=== PATIENT | male | born 1950 | race Caucasian/White ===

== ENCOUNTER 2017-06-29 10:13 | Observation (INO) | payer MEDICARE, BC ==
[~2017-06-29] VITALS: Ht 182.9 cm; Wt 80.0 kg
[2017-06-29] VITALS (8 sets, daily range): BP systolic 100–176; BP diastolic 57–76; PULSE 45–60; RESP 16–18; TEMP 98.2–98.6; O2SAT 94–100
[~2017-06-29 10:13] MED LIST: MOBI15TA PO
--- NOTE | 2017-06-29 10:52 | RADRPT ---
EXAM DATE/TIME: 06/29/2017 10:46 [place] COMPARISON: No previous studies available for comparison. INDICATIONS : Chest pain. MEDICAL HISTORY : None. SURGICAL HISTORY : None. ENCOUNTER: Initial ACUITY: 1 day PAIN SCORE: 5/10 LOCATION: Bilateral chest FINDINGS: PA and lateral views of the chest demonstrate the lungs to be symmetrically aerated without evidence of mass, infiltrate or effusion. The cardiomediastinal contours are unremarkable. Osseous structure s are intact. CONCLUSION: No acute disease. Ravinder Parikh MD on June 29, 2017 at 10:50 Board Certified Radiologist. This report was verified electronically.
[2017-06-29 11:06] LABS: AUTOMATED NEUTROPHIL # 3.9 TH/MM3 (1.8-7.7); BASOPHIL # 0.1 TH/MM3 (0-0.2); BASOPHIL % 1.1 % (0.0-2.0); EOSINOPHIL # 0.1 TH/MM3 (0-0.4); EOSINOPHIL % 1.6 % (0.0-4.0); HEMOGLOBIN 15.5 GM/DL (13.0-17.0); LYMPH % 23.6 % (9.0-44.0); LYMPHOCYTE # 1.3 TH/MM3 (1.0-4.8); MEAN CELL VOLUME 93.8 FL (80.0-100.0); MEAN CORPUSCULAR HEMOGLOBIN 32.3 PG (27.0-34.0); MEAN CORPUSCULAR HGB CONC 34.5 % (32.0-36.0); MEAN PLATELET VOLUME 8.1 FL (7.0-11.0); MONO % 4.9 % (0.0-8.0); MONOCYTE # 0.3 TH/MM3 (0-0.9); NEUT % 68.8 % (16.0-70.0); PLATELET COUNT 219 TH/MM3 (150-450); RED CELL DISTRIBUTION WIDTH 13.7 % (11.6-17.2); WHITE BLOOD COUNT 5.6 TH/MM3 (4.0-11.0)
[2017-06-29] MEDS ORDERED: ASPIRIN 81 MG CHEW TAB PO ONE (11:15)
[2017-06-29] MEDS ORDERED: NITROGLYCERIN 0.4 MG SL 25 TABS/BTL SL SCH (11:15)
--- NOTE | 2017-06-29 11:15 | PD ---
HPI Chief Complaint: Chest Pain Time Seen by Provider: 11:04 Travel History International Travel<30 days: No Contact w/Intl Traveler<30days: No Traveled to known affect area: No History of Present Illness HPI This is 66-year-old male who reports a past medical history only significant for BPH. He presents for evaluation of chest pain. 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 He describes it as a sharp pain in the substernal/left chest region which is intermittent. There are no aggravating factors are her symptoms improve when he is resting and relaxing. He denies any shortness of breath, cough or congestion, nausea or vomiting, abdominal pain, diaphoresis, lower extremity edema. He has never had chest pain like this before. He denies any history of coronary artery disease, hypertension, diabetes, hyperlipidemia or tobacco use. He reports that he has an uncle who had an AZ in the past but otherwise denies any significant past family history. He reports that he took a baby aspirin after symptoms started. He reports that he had a stress test 10 years ago which he was told was normal. His primary care physician is Dr. Cotter. No other complaints at this time. [facility] Past Medical History Genitourinary: Yes (ENLARGED PROSTATE) Past Surgical History Abdominal Surgery: Yes (INGUINAL HERNIA REPAIR LEFT SIDE) Social History Alcohol Use: No Tobacco Use: No Substance Use: No Allergies-Medications (Allergen,Severity, Reaction): Coded Allergies: No Known Allergies (Unverified , 05/10/14) Reported Meds & Prescriptions Reported Meds & Active Scripts Active Reported Aspirin 81 Mg Chew 81 Mg CHEW DAILY Finasteride 5 Mg Tab 5 Mg DAILY Do not crush. Flomax (Tamsulosin HCl) 0.4 Mg Cap 0.4 Mg PO HS Review of Systems Except as stated in HPI: all other systems reviewed are Neg Physical Exam Narrative GENERAL: Pleasant well-developed well-nourished male in no acute distress SKIN: Warm and dry. HEAD: Atraumatic. Normocephalic. EYES: Pupils equal and round. No scleral icterus. No injection or drainage. ENT: No nasal bleeding or discharge. Mucous membranes pink and moist. NECK: Trachea midline. No JVD. CARDIOVASCULAR: Regular rate and rhythm. No murmur appreciated. RESPIRATORY: No accessory muscle use. Clear to auscultation. Breath sounds equal bilaterally. GASTROINTESTINAL: Abdomen soft, non-tender, nondistended. Hepatic and splenic margins not palpable. MUSCULOSKELETAL: No obvious deformities. No clubbing. No cyanosis. No edema. NEUROLOGICAL: Awake and alert. No obvious cranial nerve deficits. Motor grossly within normal limits. Normal speech. PSYCHIATRIC: Appropriate mood and affect; insight and judgment normal. Data Data Last Documented VS Vital Signs Date Time Temp Pulse Resp B/P (MAP) Pulse Ox O2 Delivery O2 Flow Rate FiO2 06/29/17 11:21 60 18 140/75 (96) 100 Room Air 06/29/17 10:17 98.5 Orders Orders Electrocardiogram (06/29/17 10:20) Complete Blood Count With Diff (06/29/17 10:20) Basic Metabolic Panel (Bmp) (06/29/17 10:20) Ckmb (Isoenzyme) Profile (06/29/17 10:20) Troponin I (06/29/17 10:20) Iv Access Insert/Monitor (06/29/17 10:20) Ecg Monitoring (06/29/17 10:20) Oxygen Administration (06/29/17 10:20) Oximetry (06/29/17 10:20) Chest, Pa & Lat (06/29/17 10:20) Aspirin Chew (Aspirin Chew) (06/29/17 11:15) Nitroglycerin Sl (Nitrostat Sl) (06/29/17 11:15) Act Partial Throm Time (Ptt) (06/29/17 11:15) Prothrombin Time / Inr (Pt) (06/29/17 11:15) CKMB (06/29/17 10:40) CKMB% (06/29/17 10:40) Admit Order (Ed Use Only) (06/29/17 11:39) Morphine Inj (Morphine Inj) (06/29/17 11:45) Labs Laboratory Tests Test 06/29/17 10:40 White Blood Count 5.6 TH/MM3 Red Blood Count 4.80 MIL/MM3 Hemoglobin 15.5 GM/DL Hematocrit 45.0 % Mean Corpuscular Volume 93.8 FL Mean Corpuscular Hemoglobin 32.3 PG Mean Corpuscular Hemoglobin Concent 34.5 % Red Cell Distribution Width 13.7 % Platelet Count 219 TH/MM3 Mean Platelet Volume 8.1 FL Neutrophils (%) (Auto) 68.8 % Lymphocytes (%) (Auto) 23.6 % Monocytes (%) (Auto) 4.9 % Eosinophils (%) (Auto) 1.6 % Basophils (%) (Auto) 1.1 % Neutrophils # (Auto) 3.9 TH/MM3 Lymphocytes # (Auto) 1.3 TH/MM3 Monocytes # (Auto) 0.3 TH/MM3 Eosinophils # (Auto) 0.1 TH/MM3 Basophils # (Auto) 0.1 TH/MM3 CBC Comment DIFF FINAL Differential Comment Blood Urea Nitrogen 20 MG/DL Creatinine 1.10 MG/DL Random Glucose 138 MG/DL Calcium Level 8.7 MG/DL Sodium Level 142 MEQ/L Potassium Level 4.4 MEQ/L Chloride Level 106 MEQ/L Carbon Dioxide Level 31.8 MEQ/L Anion Gap 4 MEQ/L Estimat Glomerular Filtration Rate 67 ML/MIN Total Creatine Kinase 298 U/L Troponin I LESS THAN 0.02 NG/ML MDM Medical Decision Making Medical Screen Exam Complete: Yes Emergency Medical Condition: Yes Medical Record Reviewed: Yes Differential Diagnosis Angina, acute coronary syndrome, pericarditis, myocarditis, pneumothorax, hemothorax, pulmonary embolism, GERD, aortic dissection Narrative Course The patient was placed on ECG monitoring pulse oximetry. 12-lead EKG was obtained revealing sinus bradycardia with a rate of 51, occasional SVTs. Lab work, chest x-rays been ordered. Addition 243 mg of aspirin, sublingual nitroglycerin has been ordered. CBC is unremarkable. Chest x-ray reveals no acute disease. BMP reveals a BUN of 20, glucose 138 otherwise unremarkable. Initial set of cardiac enzymes are negative. At this point time the plan would be to admit the patient to the chest pain center for serial cardiac enzymes and rule out purposes. She is agreeable. Diagnosis Primary Impression: Chest pain Admitting Information Admitting Physician Requests: Zacarias Scott Jun 29, 2017 11:15
[2017-06-29 11:25] LABS: BICARBONATE 31.8 MEQ/L (21.0-32.0); BLOOD UREA NITROGEN 20 MG/DL (7-18); CALCIUM 8.7 MG/DL (8.5-10.1); CHLORIDE 106 MEQ/L (98-107); GLOMERULAR FILTRATION RATE 67 ML/MIN (>89); GLUCOSE,RANDOM 138 MG/DL (74-106); SODIUM (NA) 142 MEQ/L (136-145)
[2017-06-29 11:28] LABS: TROPONIN I LESS THAN 0.02 NG/ML (0.02-0.05)
[2017-06-29] MEDS ORDERED: TAMS5CAP PO (11:30)
[2017-06-29] MEDS ORDERED: FINA5TAB2 (11:30)
[2017-06-29] MEDS ORDERED: ASPI-516 CHEW (11:31)
[2017-06-29] MEDS ORDERED: MORPHINE SULFATE 4 MG/ML INJ IV PUSH ONE (11:45)
--- NOTE | 2017-06-29 11:49 | PD ---
Physical Exam Date Seen by Provider: Jun 29, 2017 Narrative Patient presents with a chief complaint of chest pain which started while he was at work this morning. Data Data Last Documented VS Vital Signs Date Time Temp Pulse Resp B/P (MAP) Pulse Ox O2 Delivery O2 Flow Rate FiO2 06/29/17 11:21 60 18 140/75 (96) 100 Room Air 06/29/17 10:17 98.5 Orders Orders Electrocardiogram (06/29/17 10:20) Complete Blood Count With Diff (06/29/17 10:20) Basic Metabolic Panel (Bmp) (06/29/17 10:20) Ckmb (Isoenzyme) Profile (06/29/17 10:20) Troponin I (06/29/17 10:20) Iv Access Insert/Monitor (06/29/17 10:20) Ecg Monitoring (06/29/17 10:20) Oxygen Administration (06/29/17 10:20) Oximetry (06/29/17 10:20) Chest, Pa & Lat (06/29/17 10:20) Aspirin Chew (Aspirin Chew) (06/29/17 11:15) Nitroglycerin Sl (Nitrostat Sl) (06/29/17 11:15) Act Partial Throm Time (Ptt) (06/29/17 11:15) Prothrombin Time / Inr (Pt) (06/29/17 11:15) CKMB (06/29/17 10:40) CKMB% (06/29/17 10:40) Admit Order (Ed Use Only) (06/29/17 11:39) Morphine Inj (Morphine Inj) (06/29/17 11:45) Labs Laboratory Tests Test 06/29/17 10:40 06/29/17 11:40 White Blood Count 5.6 TH/MM3 Red Blood Count 4.80 MIL/MM3 Hemoglobin 15.5 GM/DL Hematocrit 45.0 % Mean Corpuscular Volume 93.8 FL Mean Corpuscular Hemoglobin 32.3 PG Mean Corpuscular Hemoglobin Concent 34.5 % Red Cell Distribution Width 13.7 % Platelet Count 219 TH/MM3 Mean Platelet Volume 8.1 FL Neutrophils (%) (Auto) 68.8 % Lymphocytes (%) (Auto) 23.6 % Monocytes (%) (Auto) 4.9 % Eosinophils (%) (Auto) 1.6 % Basophils (%) (Auto) 1.1 % Neutrophils # (Auto) 3.9 TH/MM3 Lymphocytes # (Auto) 1.3 TH/MM3 Monocytes # (Auto) 0.3 TH/MM3 Eosinophils # (Auto) 0.1 TH/MM3 Basophils # (Auto) 0.1 TH/MM3 CBC Comment DIFF FINAL Differential Comment Blood Urea Nitrogen 20 MG/DL Creatinine 1.10 MG/DL Random Glucose 138 MG/DL Calcium Level 8.7 MG/DL Sodium Level 142 MEQ/L Potassium Level 4.4 MEQ/L Chloride Level 106 MEQ/L Carbon Dioxide Level 31.8 MEQ/L Anion Gap 4 MEQ/L Estimat Glomerular Filtration Rate 67 ML/MIN Total Creatine Kinase 298 U/L Creatine Kinase MB 4.9 NG/ML Troponin I LESS THAN 0.02 NG/ML MDM Supervised Visit with ROSA M: Yes Interpretation(s) EKG shows a normal sinus rhythm with no acute ischemic changes Differential Diagnosis Differential diagnosis of chest pain includes but is not limited to musculoskeletal pain, pulmonary embolism, acute coronary syndrome, pneumonia, pleurisy Narrative Course I, Dr. Travis, have reviewed the advance practice practitioner's documentation and am in agreement, met with the patient face to face, made the diagnosis, and the medical decision making was done by me. *My assessment and Findings: CBC & BMP Diagram 06/29/17 10:40 Calcium Level 8.7 trop < 0.02 This patient will be admitted to the chest pain center for further evaluation. Diagnosis Primary Impression: Chest pain Araceli Travis MD Jun 29, 2017 11:49
[2017-06-29 11:58] LABS: INTERNATIONAL NORMALIZED RATIO 1.1 RATIO; PROTHROMBIN TIME - PATIENT 11.3 SEC (9.8-11.6)
[2017-06-29] MEDS ORDERED: ACETAMINOPHEN 500 MG CPLT PO PRN (13:15)
[2017-06-29] MEDS ORDERED: ALPRAZolam 0.25 MG TAB PO PRN (13:15)
[2017-06-29] MEDS ORDERED: ONDANSETRON HCL 4 MG/2 ML VIAL IV PUSH PRN (13:15)
[2017-06-29] MEDS ORDERED: ACETAMINOPHEN/HYDROcodone 325 MG/7.5 MG TAB PO PRN (13:15)
--- NOTE | 2017-06-29 13:21 | HHI.HP ---
[facility] Primary Care Physician Lopez Cotter M.D. 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 Describes as a sharp discomfort. It lasted about 3 hours. Was in the center of his chest rating a little bit to the left. He states that he was given sublingual nitroglycerin in the emergency department and seemed to resolve the symptoms within 10-15 minutes. Denies being short of breath, nauseous, diaphoretic. Denies history of CAD. States he had a stress test about 10 years ago that was okay. Has history of BPH. Denies hypertension , hyperlipidemia, diabetes, CAD, tobacco abuse. Denies family history of CAD. Denies recent illness. Denies recent travel. Review of Systems General: Patient denies fevers, chills, and recent travel. HEENT: Patient denies headache, sore throat, difficulty swallowing. Cardiovascular: Has the chest discomfort as mentioned above. Denies sensation of heart beating rapidly or irregularly. No syncope. Denies diaphoresis. Respiratory: Denies shortness of breath or inspirational chest discomfort. Denies coughing wheezing or hemoptysis. GI: Patient denies nausea, vomiting, diarrhea, abdominal pain, bloody stools. Musculoskeletal: Patient denies joint pain or edema. Denies calf pain or edema. Neurovascular: Patient denies numbness, tingling, weakness in extremities. Denies headache. Endocrine: Denies polyuria and polydipsia. Hematologic: Denies easy bruising. Skin: Denies rash or itching. Past Family Social History Allergies: Coded Allergies: No Known Allergies (Unverified , 05/10/14) Past Medical History BPH. Denies hypertension, hyperlipidemia, diabetes, CAD, and tobacco abuse. Past Surgical History Left tibial plateau fracture. Reported Medications Reported Meds & Active Scripts Active Reported Aspirin 81 Mg Chew 81 Mg CHEW DAILY Finasteride 5 Mg Tab 5 Mg DAILY Do not crush. Flomax (Tamsulosin HCl) 0.4 Mg Cap 0.4 Mg PO HS Active Ordered Medications Current Medications Medications (Trade) Dose Ordered Sig/Alexi Route Start Time Stop Time Status Last Admin (Tylenol) 500 mg Q4H PRN PO 06/29/17 13:15 UNV ([place] 7.5-325 Mg) 1 tab Q4H PRN PO 06/29/17 13:15 UNV (Zofran Inj) 4 mg Q6H PRN IV PUSH 06/29/17 13:15 UNV (Protonix) 40 mg DAILY PO 06/29/17 13:15 UNV (Aspirin) 325 mg DAILY PO 06/30/17 09:00 UNV (Xanax) 0.25 mg Q8H PRN PO 06/29/17 13:15 UNV Family History Denies family history of CAD. Social History Lifetime non-smoker. Rarely has alcohol. Denies illicit drug use. Physical Exam Vital Signs Vital Signs Date Time Temp Pulse Resp B/P (MAP) Pulse Ox O2 Delivery O2 Flow Rate FiO2 06/29/17 12:06 52 18 135/67 (89) 97 Room Air 06/29/17 11:21 60 18 140/75 (96) 100 Room Air 06/29/17 11:21 57 18 99 Room Air 06/29/17 11:20 18 99 Room Air 06/29/17 11:20 99 Room Air 06/29/17 10:17 98.5 50 16 176/76 (109) 100 Physical Exam GENERAL: This is a well-nourished, well-developed patient, in no apparent distress. Patient speaks in clear complete sentences. Patient is pleasant. HEENT: Head is atraumatic and normocephalic. Neck is supple without lymphadenopathy and trachea is midline. No JVD or carotid bruits. CARDIOVASCULAR: Regular rate and rhythm without murmurs, gallops, or rubs. RESPIRATORY: Clear to auscultation. Breath sounds equal bilaterally. No wheezes , rales, or rhonchi. Chest wall is nontender. No use of accessory muscles. GASTROINTESTINAL: Abdomen is nontender, nondistended. Abdomen soft. No obvious pulsatile mass or bruit. No CVA tenderness. Strong femoral pulses bilaterally. Normal bowel sounds in all quadrants. MUSCULOSKELETAL: Patient is moving upper and lower extremities freely. No calf tenderness or edema, no Homans sign. Strong pulses in upper and lower extremities. NEUROLOGICAL: Patient is alert and oriented. Cranial nerves 2-12 are grossly intact. No focal deficits and speech is clear. SKIN: No rash and turgor is normal. Laboratory Laboratory Tests Test 06/29/17 10:40 06/29/17 11:40 White Blood Count 5.6 Red Blood Count 4.80 Hemoglobin 15.5 Hematocrit 45.0 Mean Corpuscular Volume 93.8 Mean Corpuscular Hemoglobin 32.3 Mean Corpuscular Hemoglobin Concent 34.5 Red Cell Distribution Width 13.7 Platelet Count 219 Mean Platelet Volume 8.1 Neutrophils (%) (Auto) 68.8 Lymphocytes (%) (Auto) 23.6 Monocytes (%) (Auto) 4.9 Eosinophils (%) (Auto) 1.6 Basophils (%) (Auto) 1.1 Neutrophils # (Auto) 3.9 Lymphocytes # (Auto) 1.3 Monocytes # (Auto) 0.3 Eosinophils # (Auto) 0.1 Basophils # (Auto) 0.1 CBC Comment DIFF FINAL Differential Comment Blood Urea Nitrogen 20 Creatinine 1.10 Random Glucose 138 Calcium Level 8.7 Sodium Level 142 Potassium Level 4.4 Chloride Level 106 Carbon Dioxide Level 31.8 Anion Gap 4 Estimat Glomerular Filtration Rate 67 Total Creatine Kinase 298 Creatine Kinase MB 4.9 Troponin I LESS THAN 0.02 Prothrombin Time 11.3 Prothromb Time International Ratio 1.1 Activated Partial Thromboplast Time 23.2 Result Diagram: 06/29/17 1040 06/29/17 1040 Imaging Last 48 hours Impressions Chest X-Ray 06/29/17 1020 Signed Impressions: Service Date/Time: Thursday, June 29, 2017 10:46 - CONCLUSION: No acute disease. Ravinder Parikh MD Course Initial EKG is sinus bradycardia without significant ST segment depressions or elevations. Caprini VTE Risk Assessment Caprini VTE Risk Assessment: Mod/High Risk (score >= 2) Caprini Risk Assessment Model Point Value = 1 Point Value = 2 Point Value = 3 Point Value = 5 Age 41-60 Minor surgery BMI > 25 kg/m2 Swollen legs Varicose veins or History of unexplained or recurrent spontaneous Oral contraceptives or hormone replacement Sepsis (< 1 month) Serious lung disease, including pneumonia (< 1 month) Abnormal pulmonary function Acute myocardial infarction Congestive heart failure (< 1 month) History of inflammatory bowel disease Medical patient at bed rest Age 61-74 Arthroscopic surgery Major open surgery (> 45 min) Laparoscopic surgery (> 45 min) Malignancy Confined to bed (> 72 hours) Immobilizing plaster cast Central venous access Age >= 75 History of VTE Family history of VTE Factor V Leiden Prothrombin [id number] Lupus anticoagulant Anticardiolipin antibodies Elevated serum homocysteine Heparin-induced thrombocytopenia Other congenital or acquired thrombophilia Stroke (< 1 month) Elective arthroplasty Hip, pelvis, or leg fracture Acute spinal cord injury (< 1 month) Prophylaxis Regimen Total Risk Factor Score Risk Level Prophylaxis Regimen 0-1 Low Early ambulation 2 Moderate Order ONE of the following: *Sequential Compression Device (SCD) *Heparin 5000 units SQ BID 3-4 Higher Order ONE of the following medications: *Heparin 5000 units SQ TID *Enoxaparin/Lovenox 40 mg SQ daily (WT < 150 kg, CrCl > 30 mL/min) *Enoxaparin/Lovenox 30 mg SQ daily (WT < 150 kg, CrCl > 10-29 mL/min) *Enoxaparin/Lovenox 30 mg SQ BID (WT < 150 kg, CrCl > 30 mL/min) AND/OR *Sequential Compression Device (SCD) 5 or more Highest Order ONE of the following medications: *Heparin 5000 units SQ TID (Preferred with Epidurals) *Enoxaparin/Lovenox 40 mg SQ daily (WT < 150 kg, CrCl > 30 mL/min) *Enoxaparin/Lovenox 30 mg SQ daily (WT < 150 kg, CrCl > 10-29 mL/min) *Enoxaparin/Lovenox 30 mg SQ BID (WT < 150 kg, CrCl > 30 mL/min) AND *Sequential Compression Device (SCD) Assessment and Plan Assessment and Plan * Chest pain: Patient will have serial cardiac enzymes and EKGs for ruling out purposes. He will be seen by Dr. Eliceo Nuñez of cardiology in the chest pain center and will undergo a Kevin protocol ETT. Patient will be discharged home if the stress test is nonischemic with instructions to follow-up with PCP. Return to ED for interval issues. * BPH: Resume medication. Patient is stable at this time. He is agreeable to this plan. Zay Benavides Jun 29, 2017 13:21
[2017-06-29] MEDS: PANTOPRAZOLE SOD 40 MG DELAYED RELEASE TAB PO SCH (14:19)
[2017-06-29 14:24] LABS: TROPONIN I LESS THAN 0.02 NG/ML (0.02-0.05)
[2017-06-29 17:10] LABS: TROPONIN I LESS THAN 0.02 NG/ML (0.02-0.05)
[2017-06-29] MEDS ORDERED: TAMSULOSIN HCL 0.4 MG CAP PO SCH (21:00)
--- NOTE | 2017-06-30 05:30 | EKG ---
Date Performed: 06/29/2017 Time Performed: 16:44:24 PTAGE: 66 years EKG: SINUS BRADYCARDIA WITH SHORT MS INTERVAL WITH OCCASIONAL VENTRICULAR PREMATURE COMPLEXES GOYO RDERLINE ECG PREVIOUS TRACING : 06/29/2017 13.24 No significant change from previous tracing noted. DOCTOR: Selvin Marcano Interpretating Date/Time 06/30/2017 05:28:36
--- NOTE | 2017-06-30 05:31 | EKG ---
Date Performed: 06/29/2017 Time Performed: 13:24:31 PTAGE: 66 years EKG: SINUS BRADYCARDIA WITH OCCASIONAL VENTRICULAR PREMATURE COMPLEXES ABNORMAL ECG PREVIOUS TRACING : 06/29/2017 10.24 Compared to previous tracing, PVCs are now present. DOCTOR: Selvin Marcano Interpretating Date/Time 06/30/2017 05:30:53
--- NOTE | 2017-06-30 05:32 | EKG ---
Date Performed: 06/29/2017 Time Performed: 10:24:26 PTAGE: 66 years EKG: SINUS BRADYCARDIA WITH OCCASIONAL SUPRAVENTRICULAR PREMATURE COMPLEXES BORDERLINE ECG INTER PRETATION BASED ON A DEFAULT AGE OF 40 YEARS PREVIOUS TRACING : 06/29/2017 10.23, image not available. DOCTOR: Selvin Marcano Interpretating Date/Time 06/30/2017 05:31:35
[2017-06-30 08:48] VITALS: BP 115/59; PULSE 82; RESP 18; TEMP 97.7; O2SAT 95
--- NOTE | 2017-06-30 08:49 | HHI.DCPOC ---
Discharge Care Plan Diagnosis: (1) Chest pain Goals to Promote Your Health * To prevent worsening of your condition and complications * To maintain your health at the optimal level Directions to Meet Your Goals Take your medications as prescribed Follow your dietary instruction Follow activity as directed Keep your appointments as scheduled Take your immunizations and boosters as scheduled If your symptoms worsen call your PCP, if no PCP go to Urgent Care Center or Emergency Room Smoking is Dangerous to Your Health. Avoid second hand smoke Call the 24-hour hour crisis hotline for domestic abuse at Zay Benavides Jun 30, 2017 08:49
[2017-06-30] MEDS ORDERED: FINASTERIDE 5 MG TAB PO SCH (09:00)
[2017-06-30] MEDS ORDERED: ASPIRIN 325 MG TAB PO SCH (09:00)
[2017-06-30] MEDS: PANTOPRAZOLE SOD 40 MG DELAYED RELEASE TAB PO SCH (09:11)
--- NOTE | 2017-06-30 18:45 | TR ---
Date Performed: 06/30/2017 Time Performed: 08:20:19 DOCTOR: Janeth Saleh DRUG LIST: CLINICAL HISTORY: REASON FOR TEST: REASON FOR ENDING: OBSERVATION: CONCLUSION: NETTIE PROTOCOL. NO CP. TEST STOPPED AFTER EXCEEDING GOAL HR SECONDARY TO SOB AND LEG FATIGUE.Maximum WA=483 % Max HR Achieved=92.0% Maximum WR=040/82 Total Exercise Time=8:00 COMMENTS: No ischemia
== END 2017-06-30 10:25 | disposition home or self-care (01) ==
LOC: NEPC 10:13 → NEDA 11:41 → NEPFCDU 14:04
PROVIDERS: ADMIT Internal Medicine Cardiovascular Disease; ATTEND Internal Medicine Cardiovascular Disease
DX: R07.89 Other chest pain (principal); R94.31 Abnormal electrocardiogram [ECG] [EKG]; N40.0 Benign prostatic hyperplasia without lower urinary tract symptoms; Z82.49 Family history of ischemic heart disease and other diseases of the circulatory system
CPT/HCPCS: 71046; 80048; 82550; 82552; 84484; 85025; 85610; 85730; 93005; 93017; 99285; G0378